=== PATIENT | female | born 1955 ===

== ENCOUNTER 2024-12-19 06:15 | Day surgery (SDC) | payer OTHER, SELFPAY | END 2024-12-19 10:17 | disposition home or self-care (01) | LOC: GI 06:15 | PROVIDERS: ATTENDING PHYSICIAN Internal Medicine Gastroenterology | DX: R12 Heartburn (principal); K44.9 Diaphragmatic hernia without obstruction or gangrene; K31.7 Polyp of stomach and duodenum; K22.70 Barrett's esophagus without dysplasia | CPT/HCPCS: 43239; 88305 ==